=== PATIENT | female | born 1995 | race Caucasian/White ===

== ENCOUNTER → 2018-02-13 13:35 | Outpatient (CLI) | payer OTHER, BC, SELFPAY | PROVIDERS: Visit Provider Physician Assistant | DX: B37.9 Candidiasis, unspecified (principal); N39.0 Urinary tract infection, site not specified | CPT/HCPCS: 87077; 87086; 87186 ==

== ENCOUNTER → 2018-02-14 12:01 | Outpatient (CLI) | payer OTHER, BC, SELFPAY ==
[2018-02-14 14:50] LABS: Urine N gonorrhoeae NOT DETECTED
[2018-02-14 15:00] LABS: Urine Chlamydia NOT DETECTED
== END ==
PROVIDERS: Visit Provider Physician Assistant
DX: B37.9 Candidiasis, unspecified (principal); N39.0 Urinary tract infection, site not specified
CPT/HCPCS: 87491; 87591

== ENCOUNTER → 2019-11-02 09:18 | Outpatient (CLI) | payer BC, SELFPAY ==
--- NOTE | 2019-11-02 | DI.US.S_ITS ---
PROCEDURE: US ABDOMEN COMPLETE INDICATIONS: ABNORMAL LFTS TECHNIQUE: Real-time scanning was performed of the abdominal and retroperitoneal organs, with image documentation. COMPARISON: None. FINDINGS: Liver: Liver is diffusely increased in echogenicity. No focal hepatic abnormalities identified. Normal hepatic size. Gallbladder: No gallstones identified. Normal gallbladder wall. No pericholecystic fluid. Negative sonographic Vivas sign. Biliary ducts: Intrahepatic bile ducts are non-dilated. Extrahepatic bile duct caliber measures 4.6 mm. Normal is 6-7 mm or less in diameter, or 10 mm or less post-cholecystectomy. Pancreas: Visualized portions of the pancreas are sonographically normal. Spleen: Spleen is normal in size and homogeneous in echotexture. Kidneys: Kidneys are normal in size and echotexture. Right kidney measures 12.1 cm long; left kidney measures 12.9 cm long. No hydronephrosis or nephrolithiasis. No solid masses. Aorta: Visualized aorta is normal in caliber at less than 3 cm. Iliacs: Proximal common iliac arteries are normal in caliber at less than 2.5 cm. IVC: Intrahepatic inferior vena cava is patent. Miscellaneous: No free abdominal fluid. IMPRESSION: 1. Increased hepatic echogenicity noted possibly related to hepatic steatosis but other sources of hepatocellular disease cannot be excluded. Recommend clinical correlation. Dictated by: Trent PATEL Interpreted: Tanisha Reyes MD on 11/02/2019 at 10:35 Approved by: Tanisha Reyes MD, PhD on 11/02/2019 at 11:54
== END ==
PROVIDERS: PCP Internal Medicine; Referring Provider Internal Medicine; Visit Provider Internal Medicine
DX: R79.89 Other specified abnormal findings of blood chemistry (principal)
CPT/HCPCS: 76700